=== PATIENT | female | born 1950 | race Two or more races ===

== ENCOUNTER 2021-12-01 19:38 | Inpatient (IN) | payer MEDICARE, OTHER ==
[~2021-12-01] VITALS: Ht 170.2 cm; Wt 68.1 kg
--- NOTE | 2021-12-01 19:20 | NUR ---
Admission report received from AM nurse.
--- NOTE | 2021-12-01 21:45 | NUR ---
Arrived via gurney from [facility] via ambulance. Awake, alert and orient x 4, able to make needs known. No s/s of respiratory distress noted. Transferred gently with 4 people assist from gurney to bed. Routine admission care done. Plan of care initiated. Safety measures and fall prevention initiated.
[2021-12-01 22:04] VITALS: BP 149/73
[2021-12-01] MEDS ORDERED: INSU3INS6 SQ (23:40)
[2021-12-01] MEDS ORDERED: INSU100I40 SQ ×2 (23:40)
[2021-12-01] MEDS ORDERED: METO-357 PO (23:40)
[2021-12-01] MEDS ORDERED: ASPI81TA31 PO (23:40)
[2021-12-02 04:31] VITALS: BP 144/76
[2021-12-02] MEDS: BLOOD SUGAR DIAGNOSTIC 1 EACH STRIP VI SCH ×4 (06:20→20:56)
[2021-12-02] MEDS ORDERED: DEXTROSE 50% 50 ML DISP.SYRIN IV PRN (06:30)
[2021-12-02 07:58] VITALS: BP 151/83
[2021-12-02] MEDS: REMEDY ESSENTIAL ZINC PASTE 113 GM TOP SCH ×2 (09:28→20:49)
[2021-12-02] MEDS: METOPROLOL TARTRATE 50 MG TABLET PO SCH ×2 (09:29→20:48)
[2021-12-02] MEDS: INSULIN REGULAR, HUMAN 300 UNIT/3 ML VIAL SQ PRN ×3 (11:51→20:59)
[2021-12-02] MEDS ORDERED: MIRALAX 17 GM POWD.PACK PO PRN (13:30)
[2021-12-02] MEDS: HYDROCODONE/APAP 5-325MG TABLET PO PRN (13:46)
[2021-12-02] MEDS ORDERED: ATEN100T PO (15:49)
[2021-12-02] MEDS ORDERED: AMLO-212 PO (15:49)
[2021-12-02] MEDS ORDERED: METF-441 PO (15:49)
[2021-12-02] MEDS ORDERED: DICL50TA7 PO (15:49)
[2021-12-02] MEDS ORDERED: AMIT25TA9 PO (15:49)
[2021-12-02] MEDS ORDERED: INSU100I45 SQ (15:49)
[2021-12-02 16:02] VITALS: BP 157/81
--- NOTE | 2021-12-02 17:11 | NUR ---
0715-Rec'd patient in bed, awake, resting comfortably. Patient verbally communicative. On R/A, patient denies pain at this time. Benito catheter draining to gravity. 0845-Patient able to consumed 50% of her breakfast, mary. well, no c/o GI discomfort, N/V noted. Routine AM care provided, noted bilateral groin areas with skin excoriation, fugi like appearance. Dr. Fernández (assigend MD) at the time as per admitting. New orders given to treat affected area. 10:44-Noted patient benito catheter draining to yellow urine/gravity and also bypassing, checked catheter for any kinks and free of kinks. 1336-Medicated patient PRN for pain based on pain level and as ordered by MD. with some help. 1330-Patient c/o bladder pain, U/S of bladder done noted with urine retention 1342ML. Dr. Fernández was informed and to contact a urologist for follow up. 3:51PM-Urologist Dr. Abhinav Proctor was informed of above patient's condition and bladder situation. 4:45PM- Per Dr. Abhinav Proctor to do a stat CT of bladder/Pelvis. 5:00PM-Patient taken to radiology dept for ct scan at this time. 5:25PM-Patient came back from rad/dept. family/Sister at bedside and aware of all of the above. Per Rad Dep. Tech. results will be in in about an hour-hour and a half from now.
[2021-12-02] MEDS ORDERED: OXYCODONE/APAP 5-325 MG TABLET PO ONE (18:15)
--- NOTE | 2021-12-02 18:59 | NUR ---
18:19-Patient was seen by Dr. Ríos, and patient in bed, resting comfortably, bladder is soft and non distended with benito catheter draining to gravity, has 1,100 cc of urine at this time. Patient able to wake up, denies any pain. Oxycodone 5/325mg x1 dose ordered by Dr. Sosa medication was offered to patient and refused at this time. Endorsed to incoming RN for proper follow up.
[2021-12-02 20:33] VITALS: BP 147/74
[2021-12-02] MEDS: DOCUSATE SODIUM 100 MG CAPSULE PO SCH (20:47)
[2021-12-02] MEDS: INSULIN GLARGINE,HUM 300 UNITS/3 ML CARTRIDGE SQ SCH (21:00)
[2021-12-02] MEDS: NYSTATIN CREAM 30 GM TUBE TOP SCH (21:00)
[2021-12-03 04:25] VITALS: BP 144/70
[2021-12-03] MEDS: BLOOD SUGAR DIAGNOSTIC 1 EACH STRIP VI SCH ×4 (06:20→21:52)
[2021-12-03] MEDS: ASPIRIN 81 MG TAB.CHEW PO SCH (10:34)
[2021-12-03] MEDS: METOPROLOL TARTRATE 50 MG TABLET PO SCH ×2 (10:37→21:46)
[2021-12-03] MEDS: REMEDY ESSENTIAL ZINC PASTE 113 GM TOP SCH ×2 (10:38→22:47)
[2021-12-03] MEDS: NYSTATIN CREAM 30 GM TUBE TOP SCH ×2 (10:38→22:47)
[2021-12-03 11:07] VITALS: BP 135/70
[2021-12-03] MEDS: INSULIN REGULAR, HUMAN 300 UNIT/3 ML VIAL SQ PRN ×2 (12:08→16:54)
[2021-12-03 13:16] LABS: HEMATOCRIT 26.5 % (31.2-41.9); MEAN CORPUSCULAR HEMOGLOBIN 28.4 uug (24.7-32.8); MEAN CORPUSCULAR VOLUME 86.8 fL (75.5-95.3); PLATELET COUNT (AUTO) 332 K/uL (179-408)
[2021-12-03] MEDS: GLUCERNA SHAKE 237 ML CAN PO SCH ×2 (13:46→18:07)
[2021-12-03 13:58] LABS: CREATININE 1.9 mg/dL (0.6-1.3); POTASSIUM 4.1 mmol/L (3.5-5.1)
[2021-12-03 14:05] LABS: BILIRUBIN,TOTAL 0.6 mg/dL (0.2-1.0); TOTAL PROTEIN, SERUM 6.9 g/dL (6.4-8.2)
[2021-12-03 15:29] VITALS: BP 138/75
--- NOTE | 2021-12-03 18:58 | NUR ---
Patient received in bed awake. She is A&Ox3. On room air. No s/s of pain nor distress noted. Calm and relax at this time. Wallace catheter draining to gravity. Patient sleeps of and on, daughter at her bedside. Sn, Spoke with Urologist regarding Wallace removal. As for now wants Wallace to stay in until further notice. Daughter very upset. Patient is resting comfortably. BS @1200 265 six units given and at 1630 138 two units given, patient tolerated well.
[2021-12-03 20:44] VITALS: BP 153/75
[2021-12-03] MEDS: DOCUSATE SODIUM 100 MG CAPSULE PO SCH (21:45)
[2021-12-03] MEDS: INSULIN GLARGINE,HUM 300 UNITS/3 ML CARTRIDGE SQ SCH (22:47)
[2021-12-03] MEDS: HYDROCODONE/APAP 5-325MG TABLET PO PRN (23:07)
[2021-12-04 04:48] VITALS: BP 137/75
[2021-12-04] MEDS: BLOOD SUGAR DIAGNOSTIC 1 EACH STRIP VI SCH ×4 (05:33→21:05)
--- NOTE | 2021-12-04 05:33 | NUR ---
Patient alert oriented, no sob no chest pain, given Narco for pain on right leg, and gen body pain, benito cath patent draining with yellow color urine in moderate amount, blood sugar 79, asymptomatic, given orange juice cont to monitor.
[2021-12-04 07:26] VITALS: BP 155/77
--- NOTE | 2021-12-04 09:04 | NUR ---
INDIVIDUALIZED PLAN OF CARE
[2021-12-04] MEDS: METOPROLOL TARTRATE 50 MG TABLET PO SCH ×2 (09:49→20:36)
[2021-12-04] MEDS: NYSTATIN CREAM 30 GM TUBE TOP SCH ×2 (09:49→20:37)
[2021-12-04] MEDS: GLUCERNA SHAKE 237 ML CAN PO SCH ×3 (09:49→17:42)
[2021-12-04] MEDS: REMEDY ESSENTIAL ZINC PASTE 113 GM TOP SCH ×2 (09:49→20:37)
[2021-12-04] MEDS: ASPIRIN 81 MG TAB.CHEW PO SCH (09:49)
--- NOTE | 2021-12-04 11:55 | NUR ---
PT TOLERATED PT WELL. VITALS WNL.
[2021-12-04] MEDS: INSULIN REGULAR, HUMAN 300 UNIT/3 ML VIAL SQ PRN ×2 (12:27→21:05)
[2021-12-04 15:04] VITALS: BP 154/66
[2021-12-04 15:10] VITALS: BP 154/66
[2021-12-04 15:27] LABS: HEMATOCRIT 25.8 % (31.2-41.9); MEAN CORPUSCULAR HEMOGLOBIN 28.1 uug (24.7-32.8); MEAN CORPUSCULAR VOLUME 85.6 fL (75.5-95.3); PLATELET COUNT (AUTO) 327 K/uL (179-408)
[2021-12-04 16:05] LABS: BILIRUBIN,TOTAL 0.4 mg/dL (0.2-1.0); CREATININE 1.6 mg/dL (0.6-1.3); POTASSIUM 4.1 mmol/L (3.5-5.1); TOTAL PROTEIN, SERUM 6.8 g/dL (6.4-8.2)
--- NOTE | 2021-12-04 17:25 | NUR ---
MD ORDER QSHIFT CATHETER FLUSH TO PREVENT BLOCKAGE.
--- NOTE | 2021-12-04 18:10 | NUR ---
PT IS RESTING COMFORTABLY ON BED. NO SOB NOTED; NO PAIN COMPLAIN; NO ACUTE DISTRESS NOTED. FC DRAINING WELL. LITTLE AMOUNT OF SEDIMENT NOTED. WILL ENDORSE TO ONCOMING SHIFT.
[2021-12-04 20:21] VITALS: BP 154/79
[2021-12-04] MEDS: DOCUSATE SODIUM 100 MG CAPSULE PO SCH (20:37)
[2021-12-04] MEDS: INSULIN GLARGINE,HUM 300 UNITS/3 ML CARTRIDGE SQ SCH (21:04)
[2021-12-04] MEDS: HYDROCODONE/APAP 5-325MG TABLET PO PRN (21:05)
--- NOTE | 2021-12-05 01:28 | NUR ---
Perineal care provided, noted with perineal area rash, washed with soap and water, pat dry, apply cream as ordered, wound consult in place, keep patient dry and clean, benito is draining, noted with pyuria. flushed as ordered.
[2021-12-05 02:09] LABS: *BILIRUBIN,URIN NEGATIVE (NEGATIVE); *BLOOD, URINE 2+ (NEGATIVE); *CLARITY,URINE SLIGHTLY CLOUDY (CLEAR); *KETONES,URINE NEGATIVE (NEGATIVE); *UROBILINOGEN,URINE 0.2 E.U./dl (NORMAL); LEUKOCYTE ESTERASE ,URINE 2+ (NEGATIVE); NITRITE, URINE NEGATIVE (NEGATIVE); UGLUCOSE TRACE (NEGATIVE)
[2021-12-05 02:10] LABS: *COLOR,URINE LIGHT YELLOW (YELLOW)
[2021-12-05 02:16] LABS: *CREATININE,URINE 21.1 mg/dL (30-125)
--- NOTE | 2021-12-05 05:26 | NUR ---
patient is alert to her baseline, no sob, respirations are even nonlabored, skin warm and dry to touch, patient is with general weakness, upper extremities are generally weak however able to squeeze hands with equal strength, lower extremities are generally weak and to her baseline, noted with facial droop,however the smile is symmetric, able to raise both eye brows, and puff her cheeks equally, patient is able to communicate clear voice, able to swallow without any difficulty, swallow eval was done at bedside, no difficulties noted, no cough noted during swallow eval, called attending physician with order to do CT without contrast, ordered, done, waiting for result, continue to monitor. PERRLA is intact. Addendum: 12/05/21 at 0550 by PATSY MORA RN, RN correction : noted facial droop on her left side only
[2021-12-05] MEDS: BLOOD SUGAR DIAGNOSTIC 1 EACH STRIP VI SCH ×4 (05:34→21:00)
--- NOTE | 2021-12-05 05:48 | NUR ---
spoke to dr nair, relayed CT results to the doctor, with order to give IV steroids as ordered.
[2021-12-05] MEDS ORDERED: DEXAMETHASONE SOD PHOSPHATE 10 MG INJ IV ONE (06:00)
[2021-12-05] MEDS: ASPIRIN 81 MG TAB.CHEW PO SCH (06:15)
[2021-12-05] MEDS: METOPROLOL TARTRATE 50 MG TABLET PO SCH ×2 (06:16→22:24)
[2021-12-05 07:57] VITALS: BP 152/78
--- NOTE | 2021-12-05 08:00 | NUR ---
Dr Rehmanish here to see patient -aware of left facial droop. Neuro consult contacted DR Egan awaiting further orders. Pt awake alert x 2 reorient pt to time and has a flat affect. UE's weakness equal +1. Nursing swallow eval done. Aspiration precaution implemented.
[2021-12-05] MEDS: INSULIN REGULAR, HUMAN 300 UNIT/3 ML VIAL SQ PRN ×3 (08:16→17:45)
[2021-12-05 09:32] LABS: SQUAMOUS EPITHELIAL CELL,UR NONE SEEN /HPF (NONE SEEN); YEAST,URINE MANY /HPF (NONE SEEN)
[2021-12-05 09:33] LABS: WBC,URINE 20-50 /HPF (0-3)
[2021-12-05 09:34] LABS: BACTERIA,URINE FEW /HPF (NONE SEEN)
[2021-12-05] MEDS: GLUCERNA SHAKE 237 ML CAN PO SCH ×3 (09:36→17:43)
[2021-12-05] MEDS: NYSTATIN CREAM 30 GM TUBE TOP SCH ×2 (09:37→21:00)
[2021-12-05] MEDS: REMEDY ESSENTIAL ZINC PASTE 113 GM TOP SCH ×2 (09:37→21:00)
[2021-12-05] MEDS: CLOTRIMAZOLE 1% CREAM 30 GM TUBE TOP SCH ×2 (09:37→17:43)
--- NOTE | 2021-12-05 10:00 | NUR ---
Dr samayoa ordered MRI BRAIN w/O contrast. New orders received and carried out.
[2021-12-05] MEDS ORDERED: ASPIRIN 81 MG TAB.CHEW PO SCH (10:30)
[2021-12-05] MEDS: NITROFURANTOIN/NITROFURAN MAC 100 MG CAPSULE PO SCH ×2 (11:44→22:20)
--- NOTE | 2021-12-05 11:45 | NUR ---
UA very cloudy and has plenty and sediments. UA specimen for culture taken prior to starting ABX as ordered. Pt is in no acute distress.
[2021-12-05] MEDS: AMLODIPINE 5 MG TABLET PO SCH ×2 (14:05→22:21)
[2021-12-05 14:18] VITALS: BP 196/114
--- NOTE | 2021-12-05 16:00 | NUR ---
Pt f/u call made to radiology secondary to no result from MRI yet.
[2021-12-05] MEDS ORDERED: DEXTROSE 50% 50 ML DISP.SYRIN IV PRN (18:15)
--- NOTE | 2021-12-05 18:38 | NUR ---
Dr huerta notified of MRI results new orders received and carried out. PT is in no acute distress.
[2021-12-05 20:02] VITALS: BP 141/75
[2021-12-05] MEDS ORDERED: predniSONE 20 MG TABLET PO SCH (21:00)
[2021-12-05] MEDS: INSULIN GLARGINE,HUM 300 UNITS/3 ML CARTRIDGE SQ SCH (21:00)
[2021-12-05] MEDS: DOCUSATE SODIUM 100 MG CAPSULE PO SCH (21:00)
[2021-12-05] MEDS: predniSONE 20 MG TABLET PO SCH (21:00)
--- NOTE | 2021-12-05 21:00 | NUR ---
RECEIVED REPORT FROM AM NURSE AMBER PT IS ALERT AND ORIENTED X 3-4 PT IS ABLE TO HOLD A CUP WITH BOTH HAND BUT HAS DIFFICULTY HAVING DIFFICULTY OF MAKING MEDICATION FROM CUP TO MOUTH BUT SHE IS ABLE TO EXPRESS HER NEEDS. PT HS BLOOD SUGAR IS 233 GAVE HS COVERAGE 4 UNITS OF REGULAR INSULIN. NO SIGNS OF DISTRESS NOTED. WILL CONTINUE TO MONITOR HOURLY FOR FALL AND SAFETY. NO SIGNS OF DIABETIC REACTION NOTED.
[2021-12-05] MEDS: INSULIN REGULAR, HUMAN 300 UNITS/3 ML VIAL SQ PRN (22:44)
[2021-12-05] MEDS: HYDROCODONE/APAP 5-325MG TABLET PO PRN (22:51)
[2021-12-06 04:30] VITALS: BP 141/70
[2021-12-06 06:21] LABS: HEMATOCRIT 28.6 % (31.2-41.9); MEAN CORPUSCULAR HEMOGLOBIN 28.4 uug (24.7-32.8); MEAN CORPUSCULAR VOLUME 86.6 fL (75.5-95.3); PLATELET COUNT (AUTO) 356 K/uL (179-408)
[2021-12-06] MEDS: BLOOD SUGAR DIAGNOSTIC 1 EACH STRIP VI SCH ×4 (06:33→21:02)
[2021-12-06 06:37] LABS: BILIRUBIN,TOTAL 0.7 mg/dL (0.2-1.0); CREATININE 1.4 mg/dL (0.6-1.3); POTASSIUM 4.2 mmol/L (3.5-5.1); TOTAL PROTEIN, SERUM 7.3 g/dL (6.4-8.2)
[2021-12-06] MEDS: PANTOPRAZOLE SODIUM 40 MG TABLET.DR PO SCH (06:44)
--- NOTE | 2021-12-06 06:55 | NUR ---
PT AM BLOOD SUGAR IS 316 BUT PT IS ALSO TAKING STEROIDS WHICH ELEVATED BLOOD SUGAR LEVEL NO SIGNS OF DIABETIC REACTION NOTED Addendum: 12/06/21 at 0657 by [facility] RN3 RN WILL ENDORSE TO AM NURSE
--- NOTE | 2021-12-06 08:00 | NUR ---
Pt more awake today than yesterday and more responsive to questions. Pt able to follow commands. Pt denies any c/o pain. Left facial droop still present. Aspiration precaution implemented. and frequent turning q 2 hrs implemented. Applied z guard lotrimin on groin as ordered.
[2021-12-06] MEDS: ASPIRIN 81 MG TAB.CHEW PO SCH (08:23)
[2021-12-06] MEDS: NITROFURANTOIN/NITROFURAN MAC 100 MG CAPSULE PO SCH ×2 (08:23→20:56)
[2021-12-06] MEDS: METOPROLOL TARTRATE 50 MG TABLET PO SCH ×2 (08:23→20:56)
[2021-12-06] MEDS: CLOTRIMAZOLE 1% CREAM 30 GM TUBE TOP SCH ×2 (08:28→17:15)
[2021-12-06] MEDS: NYSTATIN CREAM 30 GM TUBE TOP SCH ×2 (08:28→21:03)
[2021-12-06] MEDS: REMEDY ESSENTIAL ZINC PASTE 113 GM TOP SCH ×2 (08:28→20:57)
[2021-12-06] MEDS: INSULIN REGULAR, HUMAN 300 UNIT/3 ML VIAL SQ PRN ×3 (08:35→17:14)
[2021-12-06] MEDS: GLUCERNA SHAKE 237 ML CAN PO SCH ×3 (08:49→17:15)
[2021-12-06 09:01] VITALS: BP 151/81
[2021-12-06 16:21] VITALS: BP 117/65
--- NOTE | 2021-12-06 16:34 | NUR ---
DR MA here to see patient and dc benito catheter along with the stent. Explained to pt to increase fluid intake to promote urination. Pt agreeable with plan. Will monitor patient.
--- NOTE | 2021-12-06 18:31 | NUR ---
Pt diaper still dry will endorse to oncoming shift to do bladder check @ around 8-9pm. PT is in no acute distress.
[2021-12-06 20:18] VITALS: BP 124/68
[2021-12-06] MEDS: DOCUSATE SODIUM 100 MG CAPSULE PO SCH (20:56)
[2021-12-06] MEDS: predniSONE 20 MG TABLET PO SCH (20:57)
[2021-12-06] MEDS: INSULIN GLARGINE,HUM 300 UNITS/3 ML CARTRIDGE SQ SCH (21:04)
--- NOTE | 2021-12-06 21:25 | NUR ---
Bladder scan performed, obtained 261cc urine retention. Tolerated procedure well. Will recheck again after 2 hours. made aware.
--- NOTE | 2021-12-06 22:16 | NUR ---
Patient voided at this time. Good na care and skin care rendered.
[2021-12-07 04:00] VITALS: BP 133/79
[2021-12-07] MEDS: PANTOPRAZOLE SODIUM 40 MG TABLET.DR PO SCH (06:07)
[2021-12-07] MEDS: BLOOD SUGAR DIAGNOSTIC 1 EACH STRIP VI SCH ×4 (06:12→20:43)
[2021-12-07 07:52] VITALS: BP 134/80
[2021-12-07] MEDS: GLUCERNA SHAKE 237 ML CAN PO SCH ×3 (08:00→17:30)
--- NOTE | 2021-12-07 08:00 | NUR ---
Pt is in no acute distress. Pt tolerated physical therapy. Wound care nurse saw pt earlier. PVR @ 160cc.
[2021-12-07] MEDS: NITROFURANTOIN/NITROFURAN MAC 100 MG CAPSULE PO SCH ×2 (09:53→20:32)
[2021-12-07] MEDS: ASPIRIN 81 MG TAB.CHEW PO SCH (09:53)
[2021-12-07] MEDS: METOPROLOL TARTRATE 50 MG TABLET PO SCH ×2 (09:57→20:32)
[2021-12-07] MEDS: AMLODIPINE 5 MG TABLET PO SCH (09:57)
[2021-12-07] MEDS: REMEDY ESSENTIAL ZINC PASTE 113 GM TOP SCH ×2 (09:58→20:34)
[2021-12-07] MEDS: CLOTRIMAZOLE 1% CREAM 30 GM TUBE TOP SCH ×2 (09:58→17:31)
[2021-12-07] MEDS: NYSTATIN CREAM 30 GM TUBE TOP SCH ×2 (09:58→20:34)
[2021-12-07] MEDS: INSULIN REGULAR, HUMAN 300 UNIT/3 ML VIAL SQ PRN ×2 (10:06→13:48)
[2021-12-07 16:44] VITALS: BP 141/72
[2021-12-07 20:00] VITALS: BP 148/67
[2021-12-07] MEDS: HYDROCODONE/APAP 5-325MG TABLET PO PRN (20:32)
[2021-12-07] MEDS: predniSONE 20 MG TABLET PO SCH (20:33)
[2021-12-07] MEDS: INSULIN GLARGINE,HUM 300 UNITS/3 ML CARTRIDGE SQ SCH (20:39)
[2021-12-07] MEDS: DOCUSATE SODIUM 100 MG CAPSULE PO SCH (20:44)
--- NOTE | 2021-12-07 20:45 | NUR ---
Medicated for headache. Will monitor. BS 74 mg/dl, held Lantus insulin at this time. Mason juice given at this time with oskar gomez.
[2021-12-07] MEDS: ZOLPIDEM 5 MG TABLET PO PRN (21:23)
[2021-12-08 04:00] VITALS: BP 158/70
[2021-12-08] MEDS: PANTOPRAZOLE SODIUM 40 MG TABLET.DR PO SCH (06:01)
[2021-12-08] MEDS: BLOOD SUGAR DIAGNOSTIC 1 EACH STRIP VI SCH ×4 (06:05→21:15)
[2021-12-08 07:54] VITALS: BP 168/84
[2021-12-08] MEDS: ASPIRIN 81 MG TAB.CHEW PO SCH (08:54)
[2021-12-08] MEDS: NITROFURANTOIN/NITROFURAN MAC 100 MG CAPSULE PO SCH ×2 (08:54→20:58)
[2021-12-08] MEDS: METOPROLOL TARTRATE 50 MG TABLET PO SCH ×2 (08:55→20:59)
[2021-12-08] MEDS: AMLODIPINE 5 MG TABLET PO SCH (08:56)
[2021-12-08] MEDS: CLOTRIMAZOLE 1% CREAM 30 GM TUBE TOP SCH ×2 (08:56→16:42)
[2021-12-08] MEDS: NYSTATIN CREAM 30 GM TUBE TOP SCH ×2 (08:57→21:16)
[2021-12-08] MEDS: REMEDY ESSENTIAL ZINC PASTE 113 GM TOP SCH ×2 (08:57→21:16)
[2021-12-08] MEDS: GLUCERNA SHAKE 237 ML CAN PO SCH ×3 (08:58→16:41)
[2021-12-08] MEDS: INSULIN REGULAR, HUMAN 300 UNIT/3 ML VIAL SQ PRN ×3 (09:00→19:02)
--- NOTE | 2021-12-08 15:28 | NUR ---
Patient is awake and alert but speech is unstable. Notable facial drooping. Patient is slow with max assist when walking, she gets very tired. She a hardly wants to do things. BS @1130 311 gave 16 units of insulin. She is incontinent with diaper. Rashes on na area. Patient is comfortable at this time. No apparent distress. Normal air movement. She denied pain when asked.
[2021-12-08 15:50] VITALS: BP 136/79
--- NOTE | 2021-12-08 16:25 | NUR ---
INTERDISCIPLINARY TEAM CONFERENCE
[2021-12-08] MEDS: HYDROCODONE/APAP 5-325MG TABLET PO PRN (17:00)
--- NOTE | 2021-12-08 18:28 | NUR ---
1656 [place] given for pain. BS 55 zero coverage; give patient orange juice mixed with one sugar, rechecked BS @1818 158, patient need two units. Will [facility] to [facility] shift [facility] to cover on shift.
[2021-12-08 20:00] VITALS: BP 128/77
[2021-12-08] MEDS: predniSONE 20 MG TABLET PO SCH (20:59)
[2021-12-08] MEDS: DOCUSATE SODIUM 100 MG CAPSULE PO SCH (21:00)
[2021-12-08] MEDS: INSULIN GLARGINE,HUM 300 UNITS/3 ML CARTRIDGE SQ SCH (21:00)
[2021-12-08] MEDS: ZOLPIDEM 5 MG TABLET PO PRN (21:45)
[2021-12-08 21:50] LABS: HEMATOCRIT 31.1 % (31.2-41.9); MEAN CORPUSCULAR HEMOGLOBIN 27.6 uug (24.7-32.8); MEAN CORPUSCULAR VOLUME 86.6 fL (75.5-95.3); PLATELET COUNT (AUTO) 412 K/uL (179-408)
[2021-12-08 22:13] LABS: BILIRUBIN,TOTAL 0.6 mg/dL (0.2-1.0); CREATININE 1.4 mg/dL (0.6-1.3); POTASSIUM 3.8 mmol/L (3.5-5.1); TOTAL PROTEIN, SERUM 7.2 g/dL (6.4-8.2)
[2021-12-09 04:00] VITALS: BP 120/64
[2021-12-09] MEDS: PANTOPRAZOLE SODIUM 40 MG TABLET.DR PO SCH (06:15)
[2021-12-09] MEDS: BLOOD SUGAR DIAGNOSTIC 1 EACH STRIP VI SCH ×4 (06:32→21:03)
--- NOTE | 2021-12-09 06:37 | NUR ---
Slept throughout the night, no distress. Morning glucose 404, stat random glucose ordered
[2021-12-09 08:00] VITALS: BP 157/87
[2021-12-09] MEDS: GLUCERNA SHAKE 237 ML CAN PO SCH ×2 (08:28→16:10)
[2021-12-09] MEDS: ASPIRIN 81 MG TAB.CHEW PO SCH (08:28)
[2021-12-09] MEDS: NYSTATIN CREAM 30 GM TUBE TOP SCH ×2 (08:29→20:07)
[2021-12-09] MEDS: REMEDY ESSENTIAL ZINC PASTE 113 GM TOP SCH ×2 (08:29→20:07)
[2021-12-09] MEDS: NITROFURANTOIN/NITROFURAN MAC 100 MG CAPSULE PO SCH ×2 (08:29→20:08)
[2021-12-09] MEDS: CLOTRIMAZOLE 1% CREAM 30 GM TUBE TOP SCH ×2 (08:29→16:10)
[2021-12-09] MEDS: INSULIN REGULAR, HUMAN 300 UNIT/3 ML VIAL SQ PRN ×2 (08:31→11:11)
[2021-12-09] MEDS: AMLODIPINE 5 MG TABLET PO SCH (08:34)
[2021-12-09] MEDS: METOPROLOL TARTRATE 50 MG TABLET PO SCH ×2 (08:35→20:07)
[2021-12-09] MEDS: HYDROCODONE/APAP 5-325MG TABLET PO PRN ×3 (14:21→23:40)
[2021-12-09 15:52] VITALS: BP 155/85
--- NOTE | 2021-12-09 18:16 | NUR ---
Patient tolerated care well throughout shift with minimal complaints of pain or distress. Patient with low blood sugar in the 50's. Grand juice with sugar given to patient and raised to 84. Bed left in lowest position with call light within reach. Comfort measures provided. Will endorse information to PM nurse.
[2021-12-09 20:00] VITALS: BP 136/76
[2021-12-09] MEDS: predniSONE 20 MG TABLET PO SCH (20:05)
[2021-12-09] MEDS: DOCUSATE SODIUM 100 MG CAPSULE PO SCH (20:08)
[2021-12-09] MEDS: INSULIN REGULAR, HUMAN 300 UNITS/3 ML VIAL SQ PRN (21:04)
[2021-12-09] MEDS: ZOLPIDEM 5 MG TABLET PO PRN (21:04)
[2021-12-09] MEDS: INSULIN GLARGINE,HUM 300 UNITS/3 ML CARTRIDGE SQ SCH (21:04)
[2021-12-10 04:00] VITALS: BP 158/89
[2021-12-10] MEDS: BLOOD SUGAR DIAGNOSTIC 1 EACH STRIP VI SCH ×4 (06:11→21:00)
[2021-12-10] MEDS: PANTOPRAZOLE SODIUM 40 MG TABLET.DR PO SCH (06:11)
[2021-12-10 07:29] VITALS: BP 148/82
[2021-12-10] MEDS: ASPIRIN 81 MG TAB.CHEW PO SCH (08:27)
[2021-12-10] MEDS: AMLODIPINE 5 MG TABLET PO SCH (08:30)
[2021-12-10] MEDS: METOPROLOL TARTRATE 50 MG TABLET PO SCH ×2 (08:30→22:24)
[2021-12-10] MEDS: GLUCERNA SHAKE 237 ML CAN PO SCH ×2 (08:33→17:17)
[2021-12-10] MEDS: REMEDY ESSENTIAL ZINC PASTE 113 GM TOP SCH ×2 (09:40→22:25)
[2021-12-10] MEDS: NYSTATIN CREAM 30 GM TUBE TOP SCH ×2 (09:49→22:25)
[2021-12-10] MEDS: CLOTRIMAZOLE 1% CREAM 30 GM TUBE TOP SCH ×2 (09:49→17:17)
[2021-12-10] MEDS: INSULIN REGULAR, HUMAN 300 UNIT/3 ML VIAL SQ PRN (12:09)
[2021-12-10 15:13] VITALS: BP 114/66
[2021-12-10 20:43] VITALS: BP 141/81
[2021-12-10] MEDS ORDERED: predniSONE 50 MG TABLET PO ONE (21:00)
[2021-12-10] MEDS: DOCUSATE SODIUM 100 MG CAPSULE PO SCH (22:23)
[2021-12-10] MEDS: ZOLPIDEM 5 MG TABLET PO PRN (22:25)
[2021-12-10] MEDS: INSULIN GLARGINE,HUM 300 UNITS/3 ML CARTRIDGE SQ SCH (22:32)
[2021-12-10] MEDS: INSULIN REGULAR, HUMAN 300 UNITS/3 ML VIAL SQ PRN (22:38)
[2021-12-11] MEDS: HYDROCODONE/APAP 5-325MG TABLET PO PRN (00:23)
[2021-12-11 00:25] LABS: HEMATOCRIT 31.3 % (31.2-41.9); MEAN CORPUSCULAR HEMOGLOBIN 27.8 uug (24.7-32.8); MEAN CORPUSCULAR VOLUME 86.9 fL (75.5-95.3); PLATELET COUNT (AUTO) 430 K/uL (179-408)
[2021-12-11 00:30] LABS: BILIRUBIN,TOTAL 0.7 mg/dL (0.2-1.0); CREATININE 1.2 mg/dL (0.6-1.3); POTASSIUM 3.5 mmol/L (3.5-5.1); TOTAL PROTEIN, SERUM 6.6 g/dL (6.4-8.2)
[2021-12-11 04:44] VITALS: BP 153/73
[2021-12-11 05:09] LABS: *BILIRUBIN,URIN NEGATIVE (NEGATIVE); *BLOOD, URINE TRACE LYSED (NEGATIVE); *CLARITY,URINE CLOUDY (CLEAR); *COLOR,URINE YELLOW (YELLOW); *KETONES,URINE NEGATIVE (NEGATIVE); LEUKOCYTE ESTERASE ,URINE 2+ (NEGATIVE); NITRITE, URINE NEGATIVE (NEGATIVE); PH,URINE 6.5 (5.0-8.0); UGLUCOSE NEGATIVE (NEGATIVE)
[2021-12-11] MEDS: PANTOPRAZOLE SODIUM 40 MG TABLET.DR PO SCH (06:05)
[2021-12-11] MEDS: BLOOD SUGAR DIAGNOSTIC 1 EACH STRIP VI SCH ×4 (06:36→20:01)
[2021-12-11 07:17] LABS: BACTERIA,URINE FEW /HPF (NONE SEEN); RBC,URINE 0-3 /HPF (0-3); SQUAMOUS EPITHELIAL CELL,UR FEW /HPF (NONE SEEN); WBC,URINE 20-50 /HPF (0-3)
[2021-12-11 07:40] VITALS: BP 150/86
[2021-12-11] MEDS: INSULIN REGULAR, HUMAN 300 UNIT/3 ML VIAL SQ PRN ×2 (08:13→11:04)
[2021-12-11] MEDS: ASPIRIN 81 MG TAB.CHEW PO SCH (08:13)
[2021-12-11] MEDS: METOPROLOL TARTRATE 50 MG TABLET PO SCH ×2 (08:14→21:01)
[2021-12-11] MEDS: CLOTRIMAZOLE 1% CREAM 30 GM TUBE TOP SCH ×2 (08:15→16:32)
[2021-12-11] MEDS: AMLODIPINE 5 MG TABLET PO SCH (08:15)
[2021-12-11] MEDS: GLUCERNA SHAKE 237 ML CAN PO SCH ×2 (08:15→16:32)
[2021-12-11] MEDS: NYSTATIN CREAM 30 GM TUBE TOP SCH ×2 (08:16→21:01)
[2021-12-11] MEDS: REMEDY ESSENTIAL ZINC PASTE 113 GM TOP SCH ×2 (08:16→21:01)
--- NOTE | 2021-12-11 14:25 | NUR ---
UA result reported to dr nair, per dr nair wait for culture result, no acute distress noted,
[2021-12-11 15:13] VITALS: BP 125/69
--- NOTE | 2021-12-11 16:23 | NUR ---
patient verbalized feeling sad, denied suicidal thoughts, psych consult made, dr pinzon made aware to see patient. no acute distress noted.
--- NOTE | 2021-12-11 16:29 | NUR ---
patient blood sugar is 54, orange juice given, patient drank it all, patient is alert, oriented x3, no sob, respirations are even nonlabored, verbally responsive, no sweat noted, no acute distress noted, rechecked blood sugar 76. patient is asymptomatic.
[2021-12-11 20:00] VITALS: BP 134/72
[2021-12-11] MEDS: DOCUSATE SODIUM 100 MG CAPSULE PO SCH (20:58)
[2021-12-11] MEDS: INSULIN REGULAR, HUMAN 300 UNITS/3 ML VIAL SQ PRN (20:58)
[2021-12-11] MEDS: INSULIN GLARGINE,HUM 300 UNITS/3 ML CARTRIDGE SQ SCH (20:59)
[2021-12-11] MEDS ORDERED: predniSONE 20 MG TABLET PO ONE (21:00)
[2021-12-11] MEDS: ZOLPIDEM 5 MG TABLET PO PRN (21:29)
[2021-12-12 04:00] VITALS: BP 160/85
[2021-12-12] MEDS: HYDROCODONE/APAP 5-325MG TABLET PO PRN (04:59)
[2021-12-12] MEDS: METOPROLOL TARTRATE 50 MG TABLET PO SCH ×2 (05:14→20:40)
[2021-12-12] MEDS: PANTOPRAZOLE SODIUM 40 MG TABLET.DR PO SCH (06:01)
[2021-12-12] MEDS: BLOOD SUGAR DIAGNOSTIC 1 EACH STRIP VI SCH ×4 (06:36→20:47)
--- NOTE | 2021-12-12 06:50 | NUR ---
no acute distress noted during shift
[2021-12-12 08:05] VITALS: BP 146/82
[2021-12-12] MEDS: INSULIN REGULAR, HUMAN 300 UNIT/3 ML VIAL SQ PRN ×2 (08:36→12:08)
[2021-12-12] MEDS: ASPIRIN 81 MG TAB.CHEW PO SCH (08:37)
[2021-12-12] MEDS: AMLODIPINE 5 MG TABLET PO SCH (08:37)
[2021-12-12] MEDS: MIRALAX 17 GM POWD.PACK PO SCH (08:37)
[2021-12-12] MEDS: GLUCERNA SHAKE 237 ML CAN PO SCH ×2 (08:38→17:16)
[2021-12-12] MEDS: CLOTRIMAZOLE 1% CREAM 30 GM TUBE TOP SCH ×2 (08:38→17:17)
[2021-12-12] MEDS: NYSTATIN CREAM 30 GM TUBE TOP SCH ×2 (08:40→20:47)
[2021-12-12] MEDS: REMEDY ESSENTIAL ZINC PASTE 113 GM TOP SCH ×2 (08:41→20:41)
--- NOTE | 2021-12-12 10:56 | NUR ---
0710-Rec'd patient in bed, awake, alert and vebally communicative, Swedish/Turkish speaking. No acute respt. distress, no s/s of hypo/hyperglycemia, denies any discomfort or pain. Call light at reach, all safety measures in place. 0830-Patient eating breakfast, due medication administered as ordered, no ASE noted, call light at reach, encouraged to use every time help is needed.
[2021-12-12] MEDS ORDERED: LORAZEPAM 0.5 MG TABLET PO PRN (16:00)
[2021-12-12 16:12] VITALS: BP 134/76
--- NOTE | 2021-12-12 18:30 | NUR ---
1630- results 144, insulin coverage of 2 unites administered as per s/s order.
[2021-12-12 20:00] VITALS: BP 138/72
[2021-12-12] MEDS: DOCUSATE SODIUM 100 MG CAPSULE PO SCH (20:40)
[2021-12-12] MEDS: LORAZEPAM 1 MG TABLET PO SCH (20:40)
[2021-12-12] MEDS: INSULIN GLARGINE,HUM 300 UNITS/3 ML CARTRIDGE SQ SCH (20:46)
[2021-12-12] MEDS: INSULIN REGULAR, HUMAN 300 UNITS/3 ML VIAL SQ PRN (20:48)
[2021-12-12] MEDS ORDERED: predniSONE 10 MG TABLET PO ONE (21:00)
[2021-12-13 04:00] VITALS: BP 134/81
[2021-12-13] MEDS: PANTOPRAZOLE SODIUM 40 MG TABLET.DR PO SCH (06:33)
[2021-12-13] MEDS: BLOOD SUGAR DIAGNOSTIC 1 EACH STRIP VI SCH ×4 (06:36→20:51)
[2021-12-13 07:35] VITALS: BP 158/85
--- NOTE | 2021-12-13 07:45 | NUR ---
NSG; Received Patient lying in bed, awake and alert Nigerian speaking. no c/o pain or discomfort at this time. patient is incontinent with diaper. Rashes on na area g-guard apply good na provided.Patient is comfortable at this time. No apparent distress. call light w/in reach.
[2021-12-13 08:00] VITALS: BP 145/86
[2021-12-13] MEDS: MIRALAX 17 GM POWD.PACK PO SCH (08:20)
[2021-12-13] MEDS: ASPIRIN 81 MG TAB.CHEW PO SCH (08:20)
[2021-12-13] MEDS: ESCITALOPRAM OXALATE 10 MG TABLET PO SCH (08:20)
[2021-12-13] MEDS: METOPROLOL TARTRATE 50 MG TABLET PO SCH ×2 (08:20→20:47)
[2021-12-13] MEDS: AMLODIPINE 5 MG TABLET PO SCH (08:21)
[2021-12-13] MEDS: CLOTRIMAZOLE 1% CREAM 30 GM TUBE TOP SCH ×2 (08:22→16:33)
[2021-12-13] MEDS: GLUCERNA SHAKE 237 ML CAN PO SCH ×2 (08:22→16:38)
[2021-12-13] MEDS: NYSTATIN CREAM 30 GM TUBE TOP SCH ×2 (08:23→20:48)
[2021-12-13] MEDS: INSULIN REGULAR, HUMAN 300 UNIT/3 ML VIAL SQ PRN ×2 (08:25→11:42)
[2021-12-13] MEDS: REMEDY ESSENTIAL ZINC PASTE 113 GM TOP SCH ×2 (08:26→20:49)
--- NOTE | 2021-12-13 14:37 | NUR ---
NSG; Pt is in no acute distress. Pt tolerated physical therapy. Daughter @ bedside. assisted with adl's. continue plan of care.
[2021-12-13 16:00] VITALS: BP 114/62
[2021-12-13] MEDS: HYDROCODONE/APAP 5-325MG TABLET PO PRN (19:38)
[2021-12-13 20:00] VITALS: BP 133/73
[2021-12-13] MEDS: DOCUSATE SODIUM 100 MG CAPSULE PO SCH (20:47)
[2021-12-13] MEDS: LORAZEPAM 1 MG TABLET PO SCH (20:47)
[2021-12-13] MEDS: INSULIN REGULAR, HUMAN 300 UNITS/3 ML VIAL SQ PRN (20:52)
[2021-12-13] MEDS: INSULIN GLARGINE,HUM 300 UNITS/3 ML CARTRIDGE SQ SCH (20:54)
[2021-12-13] MEDS ORDERED: predniSONE 20 MG TABLET PO ONE (21:00)
[2021-12-14 04:15] VITALS: BP 109/67
[2021-12-14] MEDS: PANTOPRAZOLE SODIUM 40 MG TABLET.DR PO SCH (06:09)
[2021-12-14] MEDS: BLOOD SUGAR DIAGNOSTIC 1 EACH STRIP VI SCH ×4 (06:12→20:18)
[2021-12-14 09:00] VITALS: BP 106/58
[2021-12-14] MEDS: METOPROLOL TARTRATE 50 MG TABLET PO SCH ×2 (09:00→20:51)
[2021-12-14] MEDS: AMLODIPINE 5 MG TABLET PO SCH (09:00)
[2021-12-14] MEDS: MIRALAX 17 GM POWD.PACK PO SCH (09:13)
[2021-12-14] MEDS: ASPIRIN 81 MG TAB.CHEW PO SCH (09:20)
[2021-12-14] MEDS: GLUCERNA SHAKE 237 ML CAN PO SCH ×2 (09:20→17:31)
[2021-12-14] MEDS: ESCITALOPRAM OXALATE 10 MG TABLET PO SCH (09:20)
[2021-12-14] MEDS: CLOTRIMAZOLE 1% CREAM 30 GM TUBE TOP SCH ×2 (11:05→17:31)
[2021-12-14] MEDS: NYSTATIN CREAM 30 GM TUBE TOP SCH ×2 (11:05→20:11)
[2021-12-14] MEDS: REMEDY ESSENTIAL ZINC PASTE 113 GM TOP SCH ×2 (11:05→20:10)
[2021-12-14] MEDS: INSULIN REGULAR, HUMAN 300 UNIT/3 ML VIAL SQ PRN (11:39)
[2021-12-14 16:00] VITALS: BP 107/59
[2021-12-14 20:00] VITALS: BP 131/75
[2021-12-14] MEDS: DOCUSATE SODIUM 100 MG CAPSULE PO SCH (20:51)
[2021-12-14] MEDS: LORAZEPAM 1 MG TABLET PO SCH (20:51)
[2021-12-14] MEDS: INSULIN GLARGINE,HUM 300 UNITS/3 ML CARTRIDGE SQ SCH (21:00)
[2021-12-14] MEDS ORDERED: predniSONE 10 MG TABLET PO ONE (21:00)
[2021-12-14] MEDS: ZOLPIDEM 5 MG TABLET PO PRN (22:36)
[2021-12-14] MEDS: HYDROCODONE/APAP 5-325MG TABLET PO PRN (22:40)
[2021-12-15 04:00] VITALS: BP 110/68
[2021-12-15] MEDS: PANTOPRAZOLE SODIUM 40 MG TABLET.DR PO SCH (06:17)
[2021-12-15] MEDS: BLOOD SUGAR DIAGNOSTIC 1 EACH STRIP VI SCH ×4 (06:17→20:45)
[2021-12-15 08:00] VITALS: BP 114/61
[2021-12-15] MEDS: METOPROLOL TARTRATE 50 MG TABLET PO SCH ×2 (08:28→20:37)
[2021-12-15] MEDS: ESCITALOPRAM OXALATE 10 MG TABLET PO SCH (08:28)
[2021-12-15] MEDS: AMLODIPINE 5 MG TABLET PO SCH (08:28)
[2021-12-15] MEDS: ASPIRIN 81 MG TAB.CHEW PO SCH (08:28)
[2021-12-15] MEDS: MIRALAX 17 GM POWD.PACK PO SCH (08:29)
[2021-12-15] MEDS: NYSTATIN CREAM 30 GM TUBE TOP SCH ×2 (08:29→20:56)
[2021-12-15] MEDS: REMEDY ESSENTIAL ZINC PASTE 113 GM TOP SCH ×2 (08:30→20:57)
[2021-12-15] MEDS: INSULIN REGULAR, HUMAN 300 UNIT/3 ML VIAL SQ PRN ×2 (08:32→12:13)
[2021-12-15] MEDS: GLUCERNA SHAKE 237 ML CAN PO SCH ×2 (09:30→17:02)
[2021-12-15] MEDS: CLOTRIMAZOLE 1% CREAM 30 GM TUBE TOP SCH ×2 (09:31→17:03)
--- NOTE | 2021-12-15 14:28 | NUR ---
INTERDISCIPLINARY TEAM CONFERENCE
[2021-12-15 16:00] VITALS: BP 117/69
--- NOTE | 2021-12-15 18:09 | NUR ---
Patient C/O having a hard time having a BM, obtained order from Dr. Ríos for a fleet enema CT, PRN. Order carried out. Pending pharmacy to deliver. Will administered/monitor and F/U according plan of care.
[2021-12-15] MEDS ORDERED: FLEET ENEMA 133 ML BOTTLE RC PRN (18:15)
--- NOTE | 2021-12-15 19:33 | NUR ---
Pharmacy did not deliver enema till end of shift. Endorsed appropriately to relieving RN for proper follow up.
[2021-12-15 20:00] VITALS: BP 128/77
[2021-12-15] MEDS: DOCUSATE SODIUM 100 MG CAPSULE PO SCH (20:35)
[2021-12-15] MEDS: LORAZEPAM 1 MG TABLET PO SCH (20:35)
[2021-12-15] MEDS: HYDROCODONE/APAP 5-325MG TABLET PO PRN (20:39)
[2021-12-15] MEDS: INSULIN GLARGINE,HUM 300 UNITS/3 ML CARTRIDGE SQ SCH (20:51)
[2021-12-15 21:09] LABS: HEMATOCRIT 34.5 % (31.2-41.9); MEAN CORPUSCULAR HEMOGLOBIN 28.3 uug (24.7-32.8); MEAN CORPUSCULAR VOLUME 87.5 fL (75.5-95.3); PLATELET COUNT (AUTO) 451 K/uL (179-408)
[2021-12-15 21:24] LABS: BILIRUBIN,TOTAL 0.6 mg/dL (0.2-1.0); CREATININE 1.2 mg/dL (0.6-1.3)
--- NOTE | 2021-12-15 22:00 | NUR ---
RECD IN BED. THIS IS TURKMEN SPEAKING LADY WHO APPEARS UNCOMFORTABLE. REPOSITIONED.VITALS ARE WITHIN NORMAL LIMIT. KEPT DRY AND CLEAN, PERINEAL REDNESS IMPROVING. NO S/S OF DIABETIC CRISIS.
[2021-12-15] MEDS: ZOLPIDEM 5 MG TABLET PO PRN (23:15)
[2021-12-16 04:00] VITALS: BP 125/70
[2021-12-16] MEDS: BLOOD SUGAR DIAGNOSTIC 1 EACH STRIP VI SCH ×4 (06:11→22:04)
[2021-12-16] MEDS: PANTOPRAZOLE SODIUM 40 MG TABLET.DR PO SCH (06:29)
--- NOTE | 2021-12-16 07:50 | NUR ---
PATIENT IN BED, ASLEEP, NO RESPIRATORY DISTRESS/USE OF ACCESSORY MUSCLES NOTED. ABLE TO WAKE UP ON GENTLY TOUCH. NO C/O PAIN OR DISCOMFORT. SAFETY MEASURES IN PLACE AND CALL LIGHT AT REACH.
[2021-12-16] MEDS: AMLODIPINE 5 MG TABLET PO SCH (08:38)
[2021-12-16] MEDS: METOPROLOL TARTRATE 50 MG TABLET PO SCH ×2 (08:38→21:44)
[2021-12-16] MEDS: ASPIRIN 81 MG TAB.CHEW PO SCH (08:38)
[2021-12-16] MEDS: ESCITALOPRAM OXALATE 10 MG TABLET PO SCH (08:38)
[2021-12-16] MEDS: MIRALAX 17 GM POWD.PACK PO SCH (08:42)
[2021-12-16 09:00] VITALS: BP 144/82
[2021-12-16] MEDS: CLOTRIMAZOLE 1% CREAM 30 GM TUBE TOP SCH ×2 (09:23→17:01)
[2021-12-16] MEDS: GLUCERNA SHAKE 237 ML CAN PO SCH ×2 (09:23→17:01)
[2021-12-16] MEDS: NYSTATIN CREAM 30 GM TUBE TOP SCH ×2 (09:25→22:06)
[2021-12-16] MEDS: REMEDY ESSENTIAL ZINC PASTE 113 GM TOP SCH ×2 (09:25→22:07)
--- NOTE | 2021-12-16 09:40 | NUR ---
0900-PATIENT WAS ASSISTED TO THE RESTROOM, HAD AN X-L SOFT FORMED BM, CARE RENDERED AND WENT TO THERAPY. PATIENT DENIES ANY DISCOMFORT, ORAL FLUIDS ENCOURAGED JONATHAN. DUE MEDICATION ADMINISTERED SCHEDULED./ORDERED BY
[2021-12-16] MEDS: INSULIN REGULAR, HUMAN 300 UNITS/3 ML VIAL SQ PRN ×2 (11:28→22:01)
--- NOTE | 2021-12-16 13:56 | NUR ---
Covid-19 sample collected and taken to the lab as ordered by Dr. Patel.
[2021-12-16 16:00] VITALS: BP 98/52
[2021-12-16] MEDS: INSULIN REGULAR, HUMAN 300 UNIT/3 ML VIAL SQ PRN (17:03)
--- NOTE | 2021-12-16 19:00 | NUR ---
PT RESTING QUIETLY IN BED IN NO DISTRESS, NO COMPLAINTS PRESENTED. VITAL SIGNS WNL. SAFETY MEASURES IMPLEMENTED.
[2021-12-16] MEDS: INSULIN GLARGINE,HUM 300 UNITS/3 ML CARTRIDGE SQ SCH (21:00)
[2021-12-16 21:40] VITALS: BP 126/69
[2021-12-16] MEDS: LORAZEPAM 1 MG TABLET PO SCH (21:43)
[2021-12-16] MEDS: DOCUSATE SODIUM 100 MG CAPSULE PO SCH (21:43)
--- NOTE | 2021-12-16 22:00 | NUR ---
NO S/S OF DIABETIC CRISIS. BLOOD SUGAR AT HS WAS 184 AND COVERED APPROPRIATELY. DUE MEDS GIVEN. PERINEAL REDNESS IMPROVED.
[2021-12-17 04:25] VITALS: BP 139/75
--- NOTE | 2021-12-17 06:13 | NUR ---
ENDORSED TO AM STAFF IN APPARENTLY FAIR CONDITION. NO ACUTE DISTRESS NOTED.
[2021-12-17] MEDS: PANTOPRAZOLE SODIUM 40 MG TABLET.DR PO SCH (06:27)
[2021-12-17] MEDS: BLOOD SUGAR DIAGNOSTIC 1 EACH STRIP VI SCH ×2 (06:28→11:52)
[2021-12-17 07:54] VITALS: BP 117/69
[2021-12-17] MEDS: MIRALAX 17 GM POWD.PACK PO SCH (09:00)
[2021-12-17 10:15] VITALS: BP 117/69
[2021-12-17] MEDS: METOPROLOL TARTRATE 50 MG TABLET PO SCH (10:15)
[2021-12-17] MEDS: ESCITALOPRAM OXALATE 10 MG TABLET PO SCH (10:15)
[2021-12-17] MEDS: AMLODIPINE 5 MG TABLET PO SCH (10:15)
[2021-12-17] MEDS: ASPIRIN 81 MG TAB.CHEW PO SCH (10:15)
[2021-12-17] MEDS: NYSTATIN CREAM 30 GM TUBE TOP SCH (10:16)
[2021-12-17] MEDS: REMEDY ESSENTIAL ZINC PASTE 113 GM TOP SCH (10:16)
[2021-12-17] MEDS: CLOTRIMAZOLE 1% CREAM 30 GM TUBE TOP SCH (10:16)
[2021-12-17] MEDS: GLUCERNA SHAKE 237 ML CAN PO SCH (10:18)
[2021-12-17] MEDS: INSULIN REGULAR, HUMAN 300 UNIT/3 ML VIAL SQ PRN ×2 (12:19→12:28)
== END 2021-12-17 14:00 | DRG 871 ==
PROVIDERS: ADMIT Physical Medicine & Rehabilitation Pain Medicine; ATTEND Physical Medicine & Rehabilitation Pain Medicine
DX: A41.9 Sepsis, unspecified organism (principal); E10.10 Type 1 diabetes mellitus with ketoacidosis without coma; R65.21 Severe sepsis with septic shock; G93.41 Metabolic encephalopathy; K72.00 Acute and subacute hepatic failure without coma; J96.01 Acute respiratory failure with hypoxia; N17.9 Acute kidney failure, unspecified; N12 Tubulo-interstitial nephritis, not specified as acute or chronic; N13.39 Other hydronephrosis; T83.89XA Other specified complication of genitourinary prosthetic devices, implants and grafts, initial encounter; E46 Unspecified protein-calorie malnutrition; I10 Essential (primary) hypertension; K59.00 Constipation, unspecified; N32.89 Other specified disorders of bladder; F43.21 Adjustment disorder with depressed mood; F32.9 Major depressive disorder, single episode, unspecified; Z79.4 Long term (current) use of insulin; I25.10 Atherosclerotic heart disease of native coronary artery without angina pectoris; G51.0 Bell's palsy; R21 Rash and other nonspecific skin eruption; Z86.74 Personal history of sudden cardiac arrest; Y73.3 Surgical instruments, materials and gastroenterology and urology devices (including sutures) associated with adverse incidents; Y92.238 Other place in hospital as the place of occurrence of the external cause
CPT/HCPCS: 36415; 70450; 70551; 76770; 84300; 85025; 87086; 97535-GO-CO; A4663; J1100; J1815; J7512